=== PATIENT | male | born 1950 | race Caucasian/White ===

== ENCOUNTER 2019-09-07 06:34 | Day surgery (SDC) | payer OTHER ==
[~2019-09-07] VITALS: Ht 180.3 cm; Wt 97.5 kg
[~2019-09-07 06:34] MED LIST: AMLODIPINE BESY10 MG PO; ASA5UEC PO; COLACE100 MG PO; COLESTID1 GM PO; DOXAZOSIN MESYLA1 MG PO; MULTIPLE VITAM1 EAC4 PO; OMEGA-3 ACID ETH1 GM PO; OMEPRAZOLE 20 M20 M1 PO; PROBIOTIC1 EAC5 PO; SAW PALMETTO450 MG PO; VALSARTAN320 MG PO
[2019-09-07 07:30] VITALS: BP 153/75
--- NOTE | 2019-09-11 06:22 | O ---
[facility] [place] [address] OPERATIVE REPORT Name: KAMRAN LOPEZ Room #: [facility]#: [id number] Admission: 09/07/19 Attend Phys: Ranjith Manuel MD Discharge: 09/07/19 Date of : 52 Report #: [id number] THIS REPORT FOR: //name// CC: Honorio Ricardo OD Physician staff RANJITH Manuel DATE OF SERVICE: 09/07/2019 COMPRESSOR MECHANIC BUS: None. PREOPERATIVE DIAGNOSIS: Bilateral upper lid ptosis with superior visual field defects both eyes. POSTOPERATIVE DIAGNOSIS: Bilateral upper lid ptosis with superior visual field defects both eyes. OPERATION PERFORMED: Bilateral upper lid functional ptosis repair. COMPRESSOR MECHANIC BUS: None. ANESTHESIA: Local with IV sedation. COMPLICATIONS: None. INDICATIONS FOR PROCEDURE: This patient has bilateral upper lid ptosis with superior visual field loss both eyes. Visual field testing demonstrates dense superior visual defects. Retesting with the upper lid elevated shows an improvement in visual field loss of over 30% and in excess of 12 degrees. The current procedure is being undertaken in order to improve the patient's visual function. Informed consent was obtained to include but not limited to the risk of loss of vision, bleeding, infection, scarring, failure to improve the problem and need for further surgery, such as adjustment of lid height. DESCRIPTION OF PROCEDURE: The patient was taken to the operating room, where 2% Xylocaine with epinephrine mixed with equal parts of 0.75% Marcaine with Wydase was administered transcutaneously to each upper lid. The patient was then prepped and draped in the usual sterile fashion. An upper lid crease incision was then made bilaterally and the dissection was carried down until the orbital septum was identified. The orbital septum was then cleared and the preaponeurotic fat identified. The levator aponeurosis was [address] [address] OPERATIVE REPORT Name: JESSICAROYAL Room #: [facility]#: [id number] Admission: 09/07/19 Attend Phys: Ranjith Manuel MD Discharge: 09/07/19 Date of : 52 Report #: [id number] then disinserted from the anterior surface of the tarsal plate and dissected free in the avascular Ordoñez's muscle plane. The aponeurosis was then advanced and reattached to the anterior surface of the tarsal plate with interrupted mattress 6-0 Novafil sutures on each side, adjusting for height and contour. The redundant aponeurosis was then amputated. The incision was then closed with multiple interrupted 6-0 chromic sutures that were used to recreate an upper lid crease. The skin was closed with a running 6-0 plain gut suture. The wound was then cleaned and dressed with ophthalmic antibiotic ointment followed by a Telfa pad. The patient was transported to the recovery area, having tolerated the procedure well with no anesthesia or operative complications being noted. <ELECTRONICALLY SIGNED> By: Ranjith Manuel MD 09/11/19 0622 [id number] Ranjith Manuel MD /teto
== END 2019-09-07 10:10 | disposition home or self-care (01) ==
LOC: OR 06:34 → TBA 06:43 → OR 08:18
DX: H02.413 Mechanical ptosis of bilateral eyelids (principal); H53.462 Homonymous bilateral field defects, left side; H53.461 Homonymous bilateral field defects, right side; I10 Essential (primary) hypertension; E78.5 Hyperlipidemia, unspecified; K21.9 Gastro-esophageal reflux disease without esophagitis; Z98.890 Other specified postprocedural states; Z98.41 Cataract extraction status, right eye; Z98.42 Cataract extraction status, left eye; Z85.820 Personal history of malignant melanoma of skin; Z79.899 Other long term (current) drug therapy; Z88.8 Allergy status to other drugs, medicaments and biological substances; Z79.82 Long term (current) use of aspirin
CPT/HCPCS: 50010; 50101; 50386; 50398; 51636; 56528; 56531; 62110; 62850; 70005